=== PATIENT | male | born 1960 | race African-American/Black ===

== ENCOUNTER 2017-05-21 16:24 | Emergency (ER) | payer MEDICAID, OTHER ==
[~2017-05-21] VITALS: Ht 188 cm; Wt 79.0 kg
[~2017-05-21 16:24] MED LIST: ALBUTEROL; TRAMADOL; VALIUM
[2017-05-21 16:54] VITALS: BP 151/91
== END 2017-05-21 20:00 | disposition home or self-care (01) ==
LOC: ER 16:24
DX: R05 Cough (principal); R50.9 Fever, unspecified; I10 Essential (primary) hypertension
CPT/HCPCS: 71045; 87804; 99285

== ENCOUNTER 2022-08-30 10:18 | Emergency (ER) | payer OTHER ==
[~2022-08-30] VITALS: Ht 182.9 cm; Wt 84.0 kg
[2022-08-30 10:30] VITALS: BP 158/91
[2022-08-30 11:21] LABS: CLARITY URINE CLEAR (CLEAR); COLOR URINE YELLOW (YELLOW); KETONES URINE NEGATIVE (NEGATIVE); LEUKOCYTE ESTERASE URINE 3+ (NEGATIVE); NITRITE URINE NEGATIVE (NEGATIVE); OCCULT BLOOD URINE TRACE (NEGATIVE); PROTEIN URINE TRACE (NEGATIVE); SPECIFIC GRAVITY URINE 1.014 (1.005-1.030); UROBILINOGEN URINE 0.2 E.U./dL (0.2-1.0)
[2022-08-30] MEDS ORDERED: LIDOCAINE HCL 1% 20ML VIAL (Pyxis) INJ INFIL ONE (11:30)
[2022-08-30] MEDS ORDERED: CEFTRIAXONE SODIUM 500 MG/VIAL IM ONE (11:30)
[2022-08-30] MEDS ORDERED: CIPR-263 MT (14:29)
[2022-08-30] MEDS ORDERED: DOXY100C5 MT (14:29)
[2022-09-02 04:07] LABS: NEISSERIA GONORRHOEAE NAA Negative (Negative)
== END 2022-08-30 14:38 | disposition home or self-care (01) ==
LOC: ER 10:51
DX: N39.0 Urinary tract infection, site not specified (principal); I10 Essential (primary) hypertension
CPT/HCPCS: 76870; 81003; 87086; 87491; 87591; 93976; 96372; 99285; J0696; J3490; Z7610

== ENCOUNTER 2022-09-14 20:14 | Emergency (ER) | payer OTHER ==
[~2022-09-14] VITALS: Ht 182.9 cm; Wt 85.5 kg
[~2022-09-14 20:14] MED LIST changes: +CIPR-263 MT; +DOXY100C5 MT
[2022-09-14 20:36] VITALS: BP 192/100
== END 2022-09-14 22:06 | disposition left against medical advice (07) ==
LOC: ER 20:14
DX: Z53.21 Procedure and treatment not carried out due to patient leaving prior to being seen by health care provider (principal)
CPT/HCPCS: 99281

== ENCOUNTER 2025-02-19 13:59 | Emergency (ER) | payer OTHER ==
[~2025-02-19] VITALS: Ht 182.9 cm; Wt 84.0 kg
[2025-02-19 14:02] VITALS: PULSE 100; RESP 16; O2SAT 96
[2025-02-19 14:07] VITALS: BP 156/85; TEMP 36.8; O2SAT 98
[2025-02-19] MEDS ORDERED: PERM60CR20 TP (14:56)
== END 2025-02-19 15:00 | disposition home or self-care (01) ==
LOC: ER 13:59
DX: Z20.2 Contact with and (suspected) exposure to infections with a predominantly sexual mode of transmission (principal); Z20.7 Contact with and (suspected) exposure to pediculosis, acariasis and other infestations; B86 Scabies; Z96.659 Presence of unspecified artificial knee joint; Z96.649 Presence of unspecified artificial hip joint; Z59.00 Homelessness unspecified; Z79.899 Other long term (current) drug therapy
CPT/HCPCS: 99282